=== PATIENT | female | born 1985 | race Caucasian/White ===

== ENCOUNTER → 2018-10-23 20:23 | Emergency (ER) | payer MEDICARE, MEDICAID ==
[~2018-10-23 20:23] MED LIST: Penicillin VK TAB* 250 MG PO ONE
--- NOTE | 2018-10-23 22:25 | ED ---
Throat Pain/Nasal Congestion - HPI Summary HPI Summary: 33 year old female presents with dental pain for the past couple days. She states that it is located in right lower jaw. She states she's been having a cold and flu for the past week. States she's been having ear fullness and pain. She admits to decrease in hearing. States that it feels like her ears have to pop. She denies any fevers. No chest pain or shortness breath. No sore throat. - History of Current Complaint Chief Complaint: EDDentalPain Time Seen by Provider: 10/23/18 22:05 - Allergies/Home Medications Allergies/Adverse Reactions: Allergies Allergy/AdvReac Type Severity Reaction Status Date / Time MS Eggs or Egg-derived Allergy Severe DIARRHEA, Verified 10/23/18 20:26 Products ECZEMA [Eggs or Egg-derived Products] MS Sulfamethoxazole Allergy Unknown Unknown Verified 10/23/18 20:26 w/Trimethoprim Reaction [From Bactrim] Details bismuth subsalicylate Allergy Hives/Diff. Verified 10/23/18 20:26 [From Pepto-Bismol] Breathing/I tching guaifenesin [From Robitussin] Allergy Unknown Verified 10/23/18 20:26 Reaction Details RAGWEED Allergy Severe SNEEZING, Uncoded 10/23/18 20:26 CONGESTION Home Medications: Home Medications Azithromycin TAB* [Zithromax TAB (Z-KIERAN) 250 mg #6 tabs] 500 mg PO DAILY [History Confirmed 10/23/18] PMH/Surg Hx/FS Hx/Imm Hx Endocrine/Hematology History: Denies: Hx Diabetes, Hx Thyroid Disease Cardiovascular History: Denies: Hx Hypertension Respiratory History: Denies: Hx Asthma, Hx Chronic Obstructive Pulmonary Disease (COPD) GI History: Denies: Hx Ulcer - Surgical History Surgery Procedure, Year, and Place: WISDOM TEETH EXTRACTION Infectious Disease History: No Infectious Disease History: Denies: Hx Hepatitis, Hx Human Immunodeficiency Virus (HIV), Traveled Outside the [place] in Last 30 Days - Family History Known Family History: Positive: Non-Contributory - Social History Alcohol Use: Rare Substance Use Type: Reports: None Smoking Status (MU): Never Smoked Tobacco Have You Smoked in the Last Year: No Review of Systems Negative: Fever Positive: Dental Pain Negative: Chest Pain Negative: Shortness Of Breath All Other Systems Reviewed And Are Negative: Yes Physical Exam Triage Information Reviewed: Yes Vital Signs On Initial Exam: Initial Vitals Temp Pulse Resp BP Pulse Ox 96.8 F 118 18 146/113 98 10/23/18 20:24 10/23/18 20:24 10/23/18 20:24 10/23/18 20:24 10/23/18 20:24 Vital Signs Reviewed: Yes Appearance: Positive: Well-Appearing Skin: Positive: Warm, Dry Head/Face: Positive: Normal Head/Face Inspection Eyes: Positive: Normal, EOMI, ASHLEY, Conjunctiva Clear ENT: Positive: Normal ENT inspection, Pharynx normal, TMs normal Dental: Positive: Percussion Tenderness @ - 29. Negative: Abscess @ Neck: Positive: Supple, Nontender, No Lymphadenopathy Respiratory/Lung Sounds: Positive: Clear to Auscultation, Breath Sounds Present Cardiovascular: Positive: Normal, RRR Abdomen Description: Positive: Nontender, Soft Bowel Sounds: Positive: Present Musculoskeletal: Positive: Normal Neurological: Positive: Normal Psychiatric: Positive: Normal Diagnostics - Vital Signs Vital Signs Temp Pulse Resp BP Pulse Ox 10/23/18 20:24 96.8 F 118 18 146/113 98 - Laboratory Lab Statement: Any lab studies that have been ordered have been reviewed, and results considered in the medical decision making process. EENT Course/Dx - Course Course Of Treatment: 33 year old female presents with dental pain for the past couple days. She states that it is located in right lower jaw. She states she' s been having a cold and flu for the past week. States she's been having ear fullness and pain. She admits to decrease in hearing. States that it feels like her ears have to pop. She denies any fevers. No chest pain or shortness breath. No sore throat. On exam has tenderness over tooth 29. No abscess noted. does have erythema but no signs of abscess. No sinus tenderness on exam. TM shows fluid behind but no erythema so no sign of ear infection at this time. Discussed will place the patient on penicillin for dental infection. Told to follow up with dentist. Patient understands agrees plan. - Differential Diagnoses Differential Diagnoses: Dental Abscess, Dental Caries, Fractured Tooth - Diagnoses Provider Diagnoses: Dental infection Discharge - Sign-Out/Discharge Documenting (check all that apply): Patient Departure Patient Received Moderate/Deep Sedation with Procedure: No - Discharge Plan Condition: Good Disposition: HOME Prescriptions: Penicillin VK TAB* [Penicillin VK 250 mg Tab*] 500 mg PO QID #27 tab Patient Education Materials: Toothache (ED) Referrals: Elayne Mays NP [Primary Care Provider] - Additional Instructions: Take antibiotics: 4 times a day for 7 days, first dose given in ED Use ibuprofen or tyenlol every 6 hours Avoid hard, crunchy food until seen by dentist Follow up with dentist as soon as possible Return to ED if develop fever, shortness of breath, pain with eye movement or swelling around eye - Billing Disposition and Condition Condition: GOOD Disposition: Home Images - Images Dental: 1 - pain
[2018-10-23 22:39] VITALS: BP 154/107
== END | disposition home or self-care (01) ==
LOC: ED 20:23
DX: K04.7 Periapical abscess without sinus (principal); K08.89 Other specified disorders of teeth and supporting structures
CPT/HCPCS: 99282; A9270-GY